=== PATIENT | female | born 1990 | race Caucasian/White ===

== ENCOUNTER 2021-01-30 16:49 | Inpatient (IN) | payer MEDICAID ==
[~2021-01-30] VITALS: Ht 170.2 cm; Wt 117.9 kg
[2021-01-30] MEDS ORDERED: MISOPROSTOL 200MCG TABLET VG SCH (17:00)
[2021-01-30] MEDS ORDERED: NALOXONE HCL 0.4 MG/ML 1ML VIAL IM PRN (17:00)
[2021-01-30] MEDS ORDERED: CARBOPROST TROMETHAMINE 250 MCG/ML AMPUL IM PRN ×2 (17:00→17:30)
[2021-01-30] MEDS ORDERED: TERBUTALINE SULFATE 1MG/ML VIAL SUBCUT PRN (17:00)
[2021-01-30] MEDS ORDERED: LACTATED RINGERS 1,000 ML IV SCH ×2 (17:00→17:30)
[2021-01-30] MEDS ORDERED: METHYLERGONOVINE MALEATE 0.2 MG/ML IM PRN ×2 (17:00→17:30)
[2021-01-30] MEDS ORDERED: BUTORPHANOL TARTRATE 2 MG/ML VIAL IV PRN (17:00)
[2021-01-30] MEDS ORDERED: DEXT 5%/LACTATED RINGERS 1,000 ML IV SCH (17:00)
[2021-01-30] MEDS ORDERED: DEXT 5%/LR + PITOCIN 20UNITS/L 1,000 ML IV SCH ×3 (17:00→19:00)
[2021-01-30] MEDS ORDERED: FENTANYL CITRATE/PF 50MCG/ML 2ML VIAL ONE (17:07)
[2021-01-30] MEDS ORDERED: PROPOFOL 200MG/20ML VIAL IV ONE (17:07)
[2021-01-30] MEDS ORDERED: OXYTOCIN 10 UNITS/ML 1ML ONE ×2 (17:09→17:29)
[2021-01-30] MEDS ORDERED: CEFAZOLIN SODIUM 1000MG/VIAL ONE (17:10)
[2021-01-30] MEDS ORDERED: MIDAZOLAM HCL 2 MG/2 ML VIAL ONE ×2 (17:25→18:07)
[2021-01-30] MEDS ORDERED: SUCCINYLCHOLINE CHLORIDE 200MG/10ML IV ONE (17:29)
[2021-01-30] MEDS ORDERED: LIDOCAINE HCL/PF 1% 10 MG/ML 5ML VIAL ONE (17:29)
[2021-01-30] MEDS ORDERED: RHO(D) IMMUNE GLOBULIN 300 MCG/SYR IM ONE (17:30)
[2021-01-30] MEDS ORDERED: ONDANSETRON HCL 4MG/2ML INJ ONE (17:38)
[2021-01-30] MEDS ORDERED: HYDROMORPHONE HCL/PF 2MG/ML (OR) ONE (17:42)
[2021-01-30 17:45] LABS: BASOPHILS % 0.4 % (0.0-2.0); EOSINOPHILS % 0.2 % (0.0-5.0); HEMATOCRIT. 33.6 % (36.0-48.0); HEMOGLOBIN. 11.7 g/dL (12.0-16.0); LYMPHOCYTES % 11.1 % (20.0-50.0); MEAN CORPUSCULAR HEMOGLOBIN 29.7 pg (28.0-32.0); MEAN CORPUSCULAR VOLUME 85.4 fL (81.0-99.0); MEAN PLATELET VOLUME 9.4 fl (7.4-10.4); NEUTROPHILS % 81.3 % (40.0-76.0); PLATELET 251 x1000/uL (130-400); RED BLOOD CELL COUNT 3.94 mill/uL (4.2-5.4); RED CELL DISTRIBUTION WIDTH 16.1 % (11.6-14.6)
[2021-01-30 17:49] LABS: CHLORIDE 105 mEq/L (98-107)
[2021-01-30] MEDS ORDERED: KETOROLAC 60MG/2ML VIAL IM ONE (17:51)
[2021-01-30 17:53] LABS: CLARITY URINE CLEAR (CLEAR); COLOR URINE YELLOW (YELLOW); INR 0.9; KETONES URINE 4+ (NEGATIVE); LEUKOCYTE ESTERASE URINE 1+ (NEGATIVE); NITRITE URINE NEGATIVE (NEGATIVE); OCCULT BLOOD URINE TRACE (NEGATIVE); PARTIAL THROMBOPLASTIN TIME 26.9 sec (23.4-31.0); PH URINE 7.5 (4.5-8.0); PROTEIN URINE NEGATIVE (NEGATIVE); PROTHROMBIN TIME 10.1 sec (9.6-11.0)
[2021-01-30 17:58] LABS: *BARBITURATES SCREEN URINE NEGATIVE (NEGATIVE); *COCAINE SCREEN URINE NEGATIVE (NEGATIVE)
[2021-01-30 17:59] LABS: *BENZODIAZEPINES SCREEN URINE NEGATIVE (NEGATIVE); METHADONE URINE SCREEN NEGATIVE (NEGATIVE); OPIATES URINE SCREEN NEGATIVE (NEGATIVE); PHENCYCLIDINE URINE SCREEN NEGATIVE (NEGATIVE)
[2021-01-30 18:08] LABS: *AMPHETAMINES SCREEN URINE PRESUMTIVE POSITIVE (NEGATIVE)
[2021-01-30 18:10] LABS: CANNABINOID URINE SCREEN PRESUMTIVE POSITIVE (NEGATIVE)
[2021-01-30] MEDS ORDERED: ONDANSETRON HCL 4MG/2ML INJ IV PRN (18:30)
[2021-01-30] MEDS ORDERED: LABETALOL HCL 5MG/ML VIAL 20ML IV PRN ×3 (18:45)
[2021-01-30] MEDS ORDERED: MAGNESIUM 20 G PREMIX (L & D) 500 ML IV SCH (18:45)
[2021-01-30] MEDS ORDERED: MAGNESIUM 4 G PREMIX 100 ML IV NR (18:45)
[2021-01-30] MEDS ORDERED: RHO(D) IMMUNE GLOBULIN 300 MCG/SYR IM PRN (19:00)
[2021-01-30] MEDS ORDERED: IBUPROFEN 400MG TABLET PO PRN (19:00)
[2021-01-30] MEDS ORDERED: BISACODYL 10MG SUPP PR PRN (19:00)
[2021-01-30] MEDS ORDERED: KETOROLAC 30MG/ML VIAL IV PRN (19:00)
[2021-01-30] MEDS: KETOROLAC 30MG/ML VIAL IV PRN (19:51)
[2021-01-30 20:03] LABS: D-DIMER 0.97 mg/L FEU (<0.50)
[2021-01-30] MEDS ORDERED: ASPI-1160 PO (20:32)
[2021-01-30] MEDS ORDERED: PRENATAL VITAMIN (20:32)
[2021-01-30] MEDS: HYDROMORPHONE HCL/PF 2MG/ML CPJ IV PRN ×4 (20:48→22:02)
[2021-01-30 23:15] VITALS: BP 110/59
[2021-01-30 23:45] VITALS: BP 110/59
[2021-01-30] MEDS ORDERED: MAGNESIUM 2 G PREMIX 50 ML IV SCH (23:45)
[2021-01-31] VITALS (8 sets, daily range): BP systolic 116–140; BP diastolic 65–83
[2021-01-31] MEDS: KETOROLAC 30MG/ML VIAL IV PRN ×2 (02:33→10:34)
[2021-01-31] MEDS: IBUPROFEN 800MG TABLET PO PRN ×2 (06:55→18:34)
[2021-01-31 08:23] LABS: BASOPHILS % 0.2 % (0.0-2.0); EOSINOPHILS % 0.4 % (0.0-5.0); HEMATOCRIT. 29.5 % (36.0-48.0); HEMOGLOBIN. 9.8 g/dL (12.0-16.0); LYMPHOCYTES % 7.8 % (20.0-50.0); MEAN CORPUSCULAR HEMOGLOBIN 29.1 pg (28.0-32.0); MEAN CORPUSCULAR VOLUME 87.3 fL (81.0-99.0); MEAN PLATELET VOLUME 9.1 fl (7.4-10.4); MONOCYTES % 7.9 % (2.0-8.0); NEUTROPHILS % 83.7 % (40.0-76.0); PLATELET 216 x1000/uL (130-400); RED BLOOD CELL COUNT 3.38 mill/uL (4.2-5.4); RED CELL DISTRIBUTION WIDTH 16.2 % (11.6-14.6)
[2021-01-31] MEDS: LABETALOL HCL 100MG TABLET PO SCH (21:48)
[2021-02-01 06:30] VITALS: BP 147/95
[2021-02-01] MEDS: IBUPROFEN 800MG TABLET PO PRN (06:53)
[2021-02-01] MEDS ORDERED: POTASSIUM CHLORIDE 20MEQ TABLET SR PO NR (08:00)
[2021-02-01] MEDS ORDERED: IBUP-2030 MT (08:00)
[2021-02-01 08:10] VITALS: BP 146/82
[2021-02-01] MEDS: LABETALOL HCL 100MG TABLET PO SCH (08:13)
[2021-02-01] MEDS ORDERED: LABE100T5 MT (08:20)
== END 2021-02-01 11:00 | disposition home or self-care (01) | DRG 540 ==
LOC: OBSVTOIN 16:49 → 8 EST LDRP 16:49 → 8EST 23:00
PROVIDERS: ADMIT Obstetrics & Gynecology; ATTEND Obstetrics & Gynecology
PROC: 10D00Z1 Extraction of Products of Conception, Low, Open Approach (ICD-10-PCS; principal; 2021-01-30)
DX: O34.211 Maternal care for low transverse scar from previous cesarean delivery (principal); O60.14X1 Preterm labor third trimester with preterm delivery third trimester, fetus 1; O60.14X2 Preterm labor third trimester with preterm delivery third trimester, fetus 2; E66.01 Morbid (severe) obesity due to excess calories; O99.324 Drug use complicating childbirth; Z37.2 Twins, both liveborn; D62 Acute posthemorrhagic anemia; O30.043 Twin pregnancy, dichorionic/diamniotic, third trimester; O32.8XX1 Maternal care for other malpresentation of fetus, fetus 1; O99.214 Obesity complicating childbirth; O32.8XX2 Maternal care for other malpresentation of fetus, fetus 2; O13.4 Gestational [pregnancy-induced] hypertension without significant proteinuria, complicating childbirth; Z20.822 Contact with and (suspected) exposure to COVID-19; O76 Abnormality in fetal heart rate and rhythm complicating labor and delivery; F15.10 Other stimulant abuse, uncomplicated; F12.10 Cannabis abuse, uncomplicated; Z3A.33 33 weeks gestation of pregnancy; O90.81 Anemia of the puerperium; Z82.49 Family history of ischemic heart disease and other diseases of the circulatory system
CPT/HCPCS: 36415; 80053; 80305; 80349; 81003; 83735; 84550; 85025; 85379; 85384; 86592; 86703; 86762; 86850; 86900; 86920; 87340; 87426; 88307; 99281; J0330; J0690; J1170; J1885; J2250; J2405; J2590; J2704; J3010; J3475; J3490; J7120; A4315

== ENCOUNTER 2021-12-06 08:03 | Emergency (ER) | payer MEDICAID ==
[~2021-12-06] VITALS: Ht 170.2 cm; Wt 113.0 kg
[~2021-12-06 08:03] MED LIST: ASPI-1160 PO; IBUP-2030 MT; LABE100T5 MT; PRENATAL VITAMIN
[2021-12-06] MEDS ORDERED: NITROGLYCERIN 0.4MG TABLET SL SL PRN (09:15)
[2021-12-06] MEDS ORDERED: ONDANSETRON 4MG ODT PO ONE (09:15)
[2021-12-06] MEDS ORDERED: ASPIRIN 81MG TABLET PO ONE (09:15)
[2021-12-06 09:42] LABS: BASOPHILS % 0.5 % (0.0-2.0); EOSINOPHILS % 0.1 % (0.0-5.0); HEMATOCRIT. 37.5 % (36.0-48.0); HEMOGLOBIN. 12.3 g/dL (12.0-16.0); LYMPHOCYTES % 13.9 % (20.0-50.0); MEAN CORPUSCULAR HEMOGLOBIN 25.9 pg (28.0-32.0); MEAN CORPUSCULAR VOLUME 79.3 fL (81.0-99.0); MEAN PLATELET VOLUME 8.8 fl (7.4-10.4); MONOCYTES % 9.1 % (2.0-8.0); NEUTROPHILS % 76.4 % (40.0-76.0); PLATELET 311 x1000/uL (130-400); RED BLOOD CELL COUNT 4.73 mill/uL (4.2-5.4); RED CELL DISTRIBUTION WIDTH 17.1 % (11.6-14.6)
[2021-12-06 09:47] LABS: CHLORIDE 106 mEq/L (98-107)
[2021-12-06 09:52] LABS: HCG SCREEN NEGATIVE
[2021-12-06 11:07] VITALS: BP 124/82
[2021-12-06 11:20] LABS: PARTIAL THROMBOPLASTIN TIME 27.5 sec (23.4-31.0); PROTHROMBIN TIME 10.9 sec (9.6-11.0)
[2021-12-06] MEDS ORDERED: IOHEXOL-350 100 ML BOTTLE ONE (12:38)
== END 2021-12-06 15:10 | disposition home or self-care (01) ==
LOC: ER 08:03
DX: R07.89 Other chest pain (principal); I10 Essential (primary) hypertension; Z98.890 Other specified postprocedural states
CPT/HCPCS: 36415; 71045; 71275; 80053; 83880; 84484; 84703; 85025; 85379; 85610; 85730; 93005; 99285; Q0162; Q9967